=== PATIENT | female | born 1970 | race Hispanic/Latino ===

== ENCOUNTER 2019-02-06 09:33 | Emergency (ER) | payer MEDICAID, OTHER ==
--- NOTE | 2019-02-06 10:45 | Emergency Department Report ---
Abscess Boil HPI - HPI Chief Complaint: Skin/Abscess/Foreign Body Stated Complaint: CYST/VAGINAL Time Seen by Provider: 02/06/19 10:13 Duration: 2 Days Location: Other (bartholin abscess) Severity: Mild History: Yes Pain, No Fever, No Purulent Drainage, No Numbness, No Foreign Body, No Previous History, No Insect Bite HPI: This is a 48-year-old female nontoxic, well nourished in appearance, no acute signs of distress presents to the ED with c/o of left Bartholin abscess. Patient denies any pus or drainage. Patient denies any fever, chills, nausea, vomiting, chest pain, shortness of breath, headache or stiff neck. Patient denies any allergies or significant past medical history. Home Medications: Home Medications Medication Instructions Recorded Confirmed Last Taken LORazepam [Ativan] 1 mg PO TID PRN 05/13/13 05/13/13 Unknown Venlafaxine [Effexor] 37.5 mg PO BIDWM 05/13/13 05/13/13 Unknown Previous Rx's Medication Instructions Recorded Last Taken Type Sulfamethoxazole/Trimethoprim 1 each PO BID #20 tablet 05/13/13 Unknown Rx [Bactrim DS] Acetaminophen/Codeine [Tylenol 1 tab PO Q6H PRN #12 tab 02/06/19 Unknown Rx /Codeine # 3 tab] Sulfamethoxazole/Trimethoprim 1 each PO BID #14 tablet 02/06/19 Unknown Rx [Bactrim DS TAB] Allergies/Adverse Reactions: Allergies Allergy/AdvReac Type Severity Reaction Status Date / Time No Known Allergies Allergy Unverified 05/13/13 12:37 ED Review of Systems ROS: Stated complaint: CYST/VAGINAL Other details as noted in HPI Constitutional: denies: chills, fever Eyes: denies: eye pain, eye discharge, vision change ENT: denies: ear pain, throat pain Respiratory: denies: cough, shortness of breath, wheezing Cardiovascular: denies: chest pain, palpitations Endocrine: no symptoms reported Gastrointestinal: denies: abdominal pain, nausea, diarrhea Genitourinary: denies: urgency, dysuria, discharge Musculoskeletal: denies: back pain, joint swelling, arthralgia Skin: denies: rash, lesions Neurological: denies: headache, weakness, paresthesias Psychiatric: denies: anxiety, depression Hematological/Lymphatic: denies: easy bleeding, easy bruising ED Past Medical Hx - Past Medical History Previous Medical History?: No - Surgical History Past Surgical History?: No - Social History Smoking Status: Never Smoker Substance Use Type: None - Medications Home Medications: Home Medications Medication Instructions Recorded Confirmed Last Taken Type LORazepam [Ativan] 1 mg PO TID PRN 05/13/13 05/13/13 Unknown History Sulfamethoxazole/Trimethoprim 1 each PO BID #20 tablet 05/13/13 Unknown Rx [Bactrim DS] Venlafaxine [Effexor] 37.5 mg PO BIDWM 05/13/13 05/13/13 Unknown History Acetaminophen/Codeine [Tylenol 1 tab PO Q6H PRN #12 tab 02/06/19 Unknown Rx /Codeine # 3 tab] Sulfamethoxazole/Trimethoprim 1 each PO BID #14 tablet 02/06/19 Unknown Rx [Bactrim DS TAB] ED Abscess Boil Physical Exam - Exam General: Vital signs noted. No distress. Alert and acting appropriately. Size: 3 cm Exam: Yes Tenderness, Yes Fluctuance, Yes Normal Neurologic Exam, Yes Normal Circulation, No Surrounding Cellulites/Erythema, No Lymphangitis, No Crepitation, No Heart Murmur I & D Note - I & D Note I & D Note: Under sterile field, I used Betadine to cleanse the area. I then used 2% lidocaine plain with 25-gauge 5/8 needle to inject area for anesthetic purposes. Total volume injected 3 mL. I then used an 11 blade to make a 1 cm incision. About 2 mL's of purulent drainage has been noted. I then used a hemostat to break the abscess formation. I then used sterile 0.9% normal saline flush to flush the wound with total volume of 40 mL used. I then put a 1 inch iodoform packing to the incision. A sterile 4 x 4 with tape has been applied as dressing. Bleeding is under control. Patient tolerated the procedure well with no signs of distress noted. Acute Care Occupational Therapist Rosemary RN present during exam and procedure. ED Course - Reevaluation(s) Reevaluation #1: 02/06/19 10:46 Patient is speaking in full sentences with no signs of distress noted. Critical care attestation.: If time is entered above; I have spent that time in minutes in the direct care of this critically ill patient, excluding procedure time. ED Medical Decision Making - Medical Decision Making This is a 48-year-old female that presents with Bartholin abscess. Patient is stable and was examined by me. This is incision and drainage and has been performed and patient tolerated well. A sterile dressing has been applied. Patient was educated on proper wound care. Patient is discharged with Bactrim and Tylenol with codeine and was instructed not to operate any machinery while taking Tylenol with codeine due to drowsiness. Patient was instructed to return in 2 days for packing removal. Patient was instructed to refer to Follow-up with a primary care doctor in 3-5 days or if symptoms worsen and continue return to emergency room as soon as possible. At time of discharge, the patient does not seem toxic or ill in appearance. No acute signs of distress noted. Patient agrees to discharge treatment plan of care. No further questions noted by the patient. ED Disposition Clinical Impression: Bartholin's gland abscess, Encounter for incision and drainage procedure Disposition: DC- TO HOME OR SELFCARE Is pt being admited?: No Does the pt Need Aspirin: No Condition: Stable Instructions: Abscess Incision and Drainage (ED), Acetaminophen/Codeine (By mouth), Bartholin Cyst (ED) Additional Instructions: Follow-up with a primary care doctor in 3-5 days or if symptoms worsen and continue return to emergency room as soon as possible. Do not operate any machinery while taking Tylenol with codeine as this may cause drowsiness. Return in 2 days for packing removal. Prescriptions: Sulfamethoxazole/Trimethoprim [Bactrim DS TAB] 1 each PO BID #14 tablet Acetaminophen/Codeine [Tylenol /Codeine # 3 tab] 1 tab PO Q6H PRN #12 tab PRN Reason: Pain , Severe (7-10) Referrals: [facility] MD TIMO [Referring] - 3-5 Days PRIMARY CAREMD [Referring] - 3-5 Days JOSE ALFREDO JOYCE MD [Staff Physician] - 3-5 Days [facility] [Outside] - 3-5 Days [facility] [Outside] - 3-5 Days Forms: Work/School Release Form(ED)
[2019-02-06 10:52] VITALS: BP 114/69
== END 2019-02-06 11:59 | disposition home or self-care (01) ==
LOC: ED 09:33
DX: N75.1 Abscess of Bartholin's gland (principal); Z79.899 Other long term (current) drug therapy

== ENCOUNTER 2019-02-13 15:07 | Emergency (ER) | payer OTHER ==
[2019-02-13 15:50] VITALS: BP 118/74
--- NOTE | 2019-02-13 15:51 | Event Note ---
ED Screening Note ED Screening Note: pt presents for bartholins cyst packing removal was done on 02/06/19 pt has had packing in for a week This initial assessment/diagnostic orders/clinical plan/treatment(s) is/are subject to change based on patients health status, clinical progression and re- assessment by fellow clinical providers in the ED. Further treatment and workup at subsequent clinical providers discretion. Patient/guardian urged not to elope from the ED as their condition may be serious if not clinically assessed and managed.
--- NOTE | 2019-02-13 17:31 | Emergency Department Report ---
Suture/Staple Removal - [facility] Chief Complaint: Skin/Abscess/Foreign Body Stated Complaint: REMOVAL OF PACKAGING Time Seen by Provider: 02/13/19 15:49 Wound Location: left bartholin cyst ED Review of Systems ROS: Stated complaint: REMOVAL OF PACKAGING Other details as noted in HPI Constitutional: denies: chills, fever Eyes: denies: eye pain, eye discharge, vision change ENT: denies: ear pain, throat pain Respiratory: denies: cough, shortness of breath, wheezing Cardiovascular: denies: chest pain, palpitations Endocrine: no symptoms reported Gastrointestinal: denies: abdominal pain, nausea, diarrhea Genitourinary: denies: urgency, dysuria, discharge Musculoskeletal: denies: back pain, joint swelling, arthralgia Skin: denies: rash, lesions Neurological: denies: headache, weakness, paresthesias Psychiatric: denies: anxiety, depression Hematological/Lymphatic: denies: easy bleeding, easy bruising ED Past Medical Hx - Past Medical History Previous Medical History?: No - Surgical History Past Surgical History?: No - Social History Smoking Status: Never Smoker Substance Use Type: None - Medications Home Medications: Home Medications Medication Instructions Recorded Confirmed Last Taken Type LORazepam [Ativan] 1 mg PO TID PRN 05/13/13 05/13/13 Unknown History Sulfamethoxazole/Trimethoprim 1 each PO BID #20 tablet 05/13/13 Unknown Rx [Bactrim DS] Venlafaxine [Effexor] 37.5 mg PO BIDWM 05/13/13 05/13/13 Unknown History Acetaminophen/Codeine [Tylenol 1 tab PO Q6H PRN #12 tab 02/06/19 Unknown Rx /Codeine # 3 tab] Sulfamethoxazole/Trimethoprim 1 each PO BID #14 tablet 02/06/19 Unknown Rx [Bactrim DS TAB] Suture Removal Exam - Exam General: Vital signs noted. No distress. Alert and acting appropriately. Wound: No Pathologic Erythema, No Tenderness, No Drainage, No Pus, No Wound Dehiscence Other Systems: All other systems reviewed and are unremarkable. ED Course Vital Signs 02/13/19 15:49 Temperature 98.3 F Pulse Rate 60 Respiratory 18 Rate Blood Pressure 118/74 O2 Sat by Pulse 100 Oximetry - Reevaluation(s) Reevaluation #1: 02/13/19 17:27 Patient is speaking in full sentences with no signs of distress noted. ED Recheck MDM - Medical Decision Making Software Performance Engineer Madisyn CHAPA present during physical exam. Packing has not been present. Well healing. Patient was instructed to follow-up with PCP in 3-5 days. Critical care attestation.: If time is entered above; I have spent that time in minutes in the direct care of this critically ill patient, excluding procedure time. ED Disposition Clinical Impression: Abscess packing removal Disposition: DC- TO HOME OR SELFCARE Is pt being admited?: No Does the pt Need Aspirin: No Condition: Stable Referrals: KALEE GUY MD [Primary Care Provider] - 3-5 Days [facility], [Referring] - 3-5 Days JOSE ALFREDO JOYCE MD [Staff Physician] - 3-5 Days [facility] [Outside] - 3-5 Days Forms: Work/School Release Form(ED)
== END 2019-02-13 17:50 | disposition home or self-care (01) ==
LOC: ED 15:07
DX: Z48.01 Encounter for change or removal of surgical wound dressing (principal)

== ENCOUNTER 2019-05-23 16:46 | Emergency (ER) | payer OTHER ==
[2019-05-23 17:57] VITALS: BP 117/81
--- NOTE | 2019-05-23 19:37 | Emergency Department Report ---
- General Chief complaint: Skin/Abscess/Foreign Body Stated complaint: BARTHOLIN CYST Time Seen by Provider: 05/23/19 18:29 Source: patient Mode of arrival: Ambulatory Limitations: No Limitations - History of Present Illness Initial comments: Patient is a 48-year-old female presents emergency room with complaints of a Bartholin's cyst of the left labia that began 2 weeks ago. She states that just a few minutes ago it opened and began draining on its own. She states that she has these recurrently. She states she last had it 6 months ago. 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 She denies any fever, chills, vomiting, abdominal pain, back pain, any other symptoms. She denies any other past medical history or allergies to medications. - Related Data Home Medications Medication Instructions Recorded Confirmed Last Taken LORazepam [Ativan] 1 mg PO TID PRN 05/13/13 05/13/13 Unknown Venlafaxine [Effexor] 37.5 mg PO BIDWM 05/13/13 05/13/13 Unknown Previous Rx's Medication Instructions Recorded Last Taken Type Sulfamethoxazole/Trimethoprim 1 each PO BID #20 tablet 05/13/13 Unknown Rx [Bactrim DS] Acetaminophen/Codeine [Tylenol 1 tab PO Q6H PRN #12 tab 02/06/19 Unknown Rx /Codeine # 3 tab] Sulfamethoxazole/Trimethoprim 1 each PO BID #14 tablet 02/06/19 Unknown Rx [Bactrim DS TAB] Allergies Allergy/AdvReac Type Severity Reaction Status Date / Time No Known Allergies Allergy Verified 02/13/19 15:08 Abscess Boil HPI - HPI Chief Complaint: Skin/Abscess/Foreign Body Stated Complaint: BARTHOLIN CYST Time Seen by Provider: 05/23/19 18:29 Home Medications: Home Medications Medication Instructions Recorded Confirmed Last Taken LORazepam [Ativan] 1 mg PO TID PRN 05/13/13 05/13/13 Unknown Venlafaxine [Effexor] 37.5 mg PO BIDWM 05/13/13 05/13/13 Unknown Previous Rx's Medication Instructions Recorded Last Taken Type Sulfamethoxazole/Trimethoprim 1 each PO BID #20 tablet 05/13/13 Unknown Rx [Bactrim DS] Acetaminophen/Codeine [Tylenol 1 tab PO Q6H PRN #12 tab 02/06/19 Unknown Rx /Codeine # 3 tab] Sulfamethoxazole/Trimethoprim 1 each PO BID #14 tablet 02/06/19 Unknown Rx [Bactrim DS TAB] Allergies/Adverse Reactions: Allergies Allergy/AdvReac Type Severity Reaction Status Date / Time No Known Allergies Allergy Verified 02/13/19 15:08 ED Review of Systems ROS: Stated complaint: BARTHOLIN CYST Other details as noted in HPI Comment: All other systems reviewed and negative ED Past Medical Hx - Past Medical History Previous Medical History?: No - Surgical History Past Surgical History?: No - Social History Smoking Status: Never Smoker - Medications Home Medications: Home Medications Medication Instructions Recorded Confirmed Last Taken Type LORazepam [Ativan] 1 mg PO TID PRN 05/13/13 05/13/13 Unknown History Sulfamethoxazole/Trimethoprim 1 each PO BID #20 tablet 05/13/13 Unknown Rx [Bactrim DS] Venlafaxine [Effexor] 37.5 mg PO BIDWM 05/13/13 05/13/13 Unknown History Acetaminophen/Codeine [Tylenol 1 tab PO Q6H PRN #12 tab 02/06/19 Unknown Rx /Codeine # 3 tab] Sulfamethoxazole/Trimethoprim 1 each PO BID #14 tablet 02/06/19 Unknown Rx [Bactrim DS TAB] ED Physical Exam - General Limitations: No Limitations General appearance: alert, in no apparent distress - Head Head exam: Present: atraumatic, normocephalic - Eye Eye exam: Present: normal appearance - ENT ENT exam: Present: mucous membranes moist - Neurological Exam Neurological exam: Present: alert, oriented X3 - Psychiatric Psychiatric exam: Present: normal affect, normal mood - Skin Skin exam: Present: warm, dry, intact ED Course Vital Signs 05/23/19 17:56 Temperature 98.6 F Pulse Rate 98 H Respiratory 20 Rate Blood Pressure 117/81 O2 Sat by Pulse 98 Oximetry ED Medical Decision Making - Medical Decision Making Advised patient that we would need to do a exam to assess for possible I&D evaluation, discussed that I would need a female nurse director audience marketing present and they would set up the appropriate I&D materials, when I went back to assess patient with a director audience marketing it appears patient has eloped from the emergency department. I did not perform exam on patient due to the fact she eloped from the emergency department. Critical care attestation.: If time is entered above; I have spent that time in minutes in the direct care of this critically ill patient, excluding procedure time. ED Disposition Clinical Impression: Bartholin's cyst Disposition: ELOPED Is pt being admited?: No Does the pt Need Aspirin: No Condition: Undetermined Instructions: Bartholin Cyst (ED) Referrals: your, hat and cap sewer [Other] - MICHELLE
== END 2019-05-23 19:50 | disposition left against medical advice (07) ==
LOC: ED 16:46
DX: N75.0 Cyst of Bartholin's gland (principal); Z79.899 Other long term (current) drug therapy

== ENCOUNTER 2019-07-21 16:06 | Emergency (ER) | payer OTHER ==
--- NOTE | 2019-07-21 16:58 | Emergency Department Report ---
Blank Doc - Documentation Documentation: 48-year-old female that presents with bartholin abscess. This initial assessment/diagnostic orders/clinical plan/treatment(s) is/are subject to change based on patient's health status, clinical progression and re- assessment by fellow clinical providers in the ED. Further treatment and workup at subsequent clinical providers discretion. Patient/guardians urged not to elope from the ED as their condition may be serious if not clinically assessed and managed. Initial orders include: 1- Patient sent to [facility] for further evaluation and treatment 2- I/D to be performed
--- NOTE | 2019-07-21 19:55 | Emergency Department Report ---
Abscess Boil HPI - HPI Chief Complaint: Urogenital-Female Stated Complaint: BARTHOLIN CYST Time Seen by Provider: 07/21/19 16:57 Duration: 1 Week Location: Other (vaginal abscess) Severity: Severe History: Yes Pain, No Fever, No Purulent Drainage, No Numbness, No Foreign Body, No Previous History, No Insect Bite HPI: Mrs. Jeong is a very pleasant 48 yo female with hx of bartholin's gland abscess. She has recurrence of the abscess, cyst with pain for one week. No fever. No trauma. Normally receives treatment in the ED for I&D. Home Medications: Home Medications Medication Instructions Recorded Confirmed Last Taken LORazepam [Ativan] 1 mg PO TID PRN 05/13/13 05/13/13 Unknown Venlafaxine [Effexor] 37.5 mg PO BIDWM 05/13/13 05/13/13 Unknown Previous Rx's Medication Instructions Recorded Last Taken Type Sulfamethoxazole/Trimethoprim 1 each PO BID #20 tablet 05/13/13 Unknown Rx [Bactrim DS] Acetaminophen/Codeine [Tylenol 1 tab PO Q6H PRN #12 tab 02/06/19 Unknown Rx /Codeine # 3 tab] Sulfamethoxazole/Trimethoprim 1 each PO BID #14 tablet 02/06/19 Unknown Rx [Bactrim DS TAB] Allergies/Adverse Reactions: Allergies Allergy/AdvReac Type Severity Reaction Status Date / Time No Known Allergies Allergy Verified 02/13/19 15:08 ED Review of Systems ROS: Stated complaint: BARTHOLIN CYST Other details as noted in HPI Constitutional: denies: fever, malaise Gastrointestinal: denies: abdominal pain, nausea, vomiting Skin: rash ED Past Medical Hx - Past Medical History Previous Medical History?: Yes Hx Psychiatric Treatment: Yes - Surgical History Past Surgical History?: No - Social History Smoking Status: Never Smoker Substance Use Type: None - Medications Home Medications: Home Medications Medication Instructions Recorded Confirmed Last Taken Type LORazepam [Ativan] 1 mg PO TID PRN 05/13/13 05/13/13 Unknown History Sulfamethoxazole/Trimethoprim 1 each PO BID #20 tablet 05/13/13 Unknown Rx [Bactrim DS] Venlafaxine [Effexor] 37.5 mg PO BIDWM 05/13/13 05/13/13 Unknown History Acetaminophen/Codeine [Tylenol 1 tab PO Q6H PRN #12 tab 02/06/19 Unknown Rx /Codeine # 3 tab] Sulfamethoxazole/Trimethoprim 1 each PO BID #14 tablet 02/06/19 Unknown Rx [Bactrim DS TAB] ED Abscess Boil Physical Exam - Exam General: Vital signs noted. No distress. Alert and acting appropriately. Size: 3 cm Exam: Yes Tenderness, Yes Fluctuance, No Surrounding Cellulites/Erythema, No Lymphangitis Exam: 3 cm left bartholin abscess I & D Note - I & D Note I & D Note: betadine 1%lidocaine 4 mL 0.8 mm incision, expressed 5 mL pus, inserted word catheter catheter 5 mL NS ED Course Vital Signs 07/21/19 16:57 Temperature 98.3 F Pulse Rate 69 Respiratory 20 Rate Blood Pressure 119/75 O2 Sat by Pulse 99 Oximetry Critical care attestation.: If time is entered above; I have spent that time in minutes in the direct care of this critically ill patient, excluding procedure time. ED Medical Decision Making - Medical Decision Making word catheter inserted after incision/drainage, recommended to keep catheter in for at least 3 weeks, referred to [facility] ED Disposition Clinical Impression: Bartholin's gland abscess Disposition: DC-01 TO HOME OR SELFCARE Is pt being admited?: No Does the pt Need Aspirin: No Condition: Stable Instructions: Bartholin Cyst (ED) Additional Instructions: Please keep word catheter in place for 3 weeks. Referrals: JEANNE ANDERSON MD [Staff Physician] - 3-5 Days
[2019-07-21] MEDS ORDERED: IBUPROFEN 800 MG TAB PO ONE (19:56)
[2019-07-21 20:38] VITALS: BP 120/82
== END 2019-07-21 20:20 | disposition home or self-care (01) ==
LOC: ED 16:06
DX: N75.1 Abscess of Bartholin's gland (principal); Z79.899 Other long term (current) drug therapy